=== PATIENT | female | born 1935 | race Caucasian/White ===

== ENCOUNTER 2018-04-10 21:42 | Emergency (ER) | payer MEDICARE, OTHER ==
[~2018-04-10] VITALS: Ht 162.6 cm; Wt 77.6 kg
[~2018-04-10 21:42] MED LIST: CALC500T63 PO; CHOL20004 PO; FAMO-129 PO; MAGN400C PO; POTA99TA14 PO; PRAV20TA PO
[2018-04-10 21:54] VITALS: BP_SYST 103
[2018-04-10] MEDS ORDERED: DIPH-TET-PERTUS Vaccine 0.5 ML VIAL (ADACEL) I.M. ONE (22:30)
[2018-04-11] MEDS ORDERED: IBUPROFEN 800 MG TABLET PO ONE (01:00)
[2018-04-11] MEDS ORDERED: NACL 0.9% 1,000 ML IV ONE ×2 (01:26→01:30)
[2018-04-11] MEDS ORDERED: IPRATROPIUM/ALBUTEROL SULFATE 3 ML AMPUL.NEB (DUONEB) INH ONE (01:30)
[2018-04-11] MEDS ORDERED: KETOROLAC TROMETHAMINE 60 MG/2 ML VIAL IM ONE (01:30)
[2018-04-11] MEDS ORDERED: LIDOCAINE JECT 2% PF 100 MG/5ML SYRINGE IVP ONE (01:30)
[2018-04-11] MEDS ORDERED: KETOROLAC TROMETHAMINE 30 MG VIAL IVP ONE (01:45)
[2018-04-11] MEDS ORDERED: LORazepam 2 MG/ML VIAL (FOR ER USE) IVP ONE ×3 (01:45→06:00)
[2018-04-11 01:51] LABS: BASOPHILS # (AUTO) 0.1 K/uL (0.0-0.2); BASOPHILS % (AUTO) 0.9 % (0.0-2.0); EOSINOPHILS % (AUTO) 0.4 % (0.0-4.0); HEMATOCRIT 33.3 % (36-48); HEMOGLOBIN 10.8 g/dL (12.0-16.0); LYMPHOCYTES # (AUTO) 0.7 K/uL (1.0-5.5); LYMPHOCYTES % (AUTO) 12.4 % (20.5-51.5); MEAN CORPUSCULAR HEMOGLOBIN 33 pg (27-31); MEAN CORPUSCULAR HGB CONC 33 % (32-36); MEAN CORPUSCULAR VOLUME 100 fL (79.0-98.0); MONOCYTES # (AUTO) 0.7 K/uL (0.0-1.0); MONOCYTES % (AUTO) 12.5 % (1.7-9.3); NEUTROPHILS # (AUTO) 4.2 K/uL (1.8-7.7); NEUTROPHILS % (AUTO) 73.8 % (40.0-70.0); PLATELET COUNT (AUTO) 190 K/uL (130-430); RED BLOOD CELL COUNT(AUTO) 3.33 MIL/uL (4.2-6.2); WHITE BLOOD COUNT (AUTO) 5.7 K/uL (4.8-10.8)
[2018-04-11 01:57] LABS: ANION GAP 8 (5-15); CALCIUM 8.8 mg/dL (8.4-11.0); CHLORIDE 99 mmol/L (98-107); CREATININE 1.95 mg/dL (0.55-1.30); GLUCOSE 121 mg/dL (70-99); POTASSIUM 3.2 mmol/L (3.5-5.1); SODIUM SERUM 141 mmol/L (136-145); UREA NITROGEN, BLOOD 67 mg/dL (8-21)
[2018-04-11] MEDS ORDERED: METO2.5T6 PO (01:58)
[2018-04-11] MEDS ORDERED: AMIODARONE HCL 900 MG in D5W 482 ML IV ONE (02:00)
[2018-04-11] MEDS ORDERED: IRON150C18 PO (02:00)
[2018-04-11] MEDS ORDERED: EPOE40003 SUBCUT (02:00)
[2018-04-11] MEDS ORDERED: ATROPINE SULFATE 0.5 MG/5 ML SYRINGE IVP ONE ×2 (02:00→05:30)
[2018-04-11] MEDS ORDERED: AMIODARONE HCL 150 MG in D5W 97 ML IV ONE (02:00)
[2018-04-11] MEDS ORDERED: LEVE100S PO (02:02)
[2018-04-11] MEDS ORDERED: HYDR-4274 PO (02:04)
[2018-04-11 02:08] LABS: ALANINE AMINOTRANSFERASE 18 U/L (12-78); ALBUMIN 3.4 g/dL (3.4-4.8); ASPARTATE AMINOTRANSFERASE 30 U/L (10-37)
[2018-04-11] MEDS ORDERED: AMIODARONE HCL 150 MG/3ML VIAL ONE (02:13)
[2018-04-11] MEDS ORDERED: AMIODARONE HCL 900 MG/18 ML VIAL IV ONE (02:15)
[2018-04-11] MEDS ORDERED: ATROPINE SULFATE 1 MG/10 ML SYRINGE IVP ONE (02:18)
[2018-04-11] MEDS ORDERED: DOCU-144 PO (02:25)
[2018-04-11] MEDS ORDERED: ALBMDI INH (02:26)
[2018-04-11] MEDS ORDERED: FURO80TA86 PO (02:27)
[2018-04-11] MEDS ORDERED: OMEP20CA10 PO (02:27)
[2018-04-11] MEDS ORDERED: FAMO20TA8 PO (02:30)
[2018-04-11] MEDS ORDERED: ASPIRIN 81 MG TAB.CHEW PO ONE (02:30)
[2018-04-11] MEDS ORDERED: POTA10TA15 PO (02:31)
[2018-04-11] MEDS ORDERED: LORA10TA7 PO (02:31)
[2018-04-11] MEDS ORDERED: MAGN100T6 PO (02:32)
[2018-04-11] MEDS ORDERED: ASPI-1153 PO (02:32)
[2018-04-11] MEDS ORDERED: PHOS118S24 PO (02:33)
[2018-04-11] MEDS ORDERED: DOXY-160 PO (02:36)
[2018-04-11] MEDS ORDERED: ACET-73 PO (02:45)
[2018-04-11] MEDS ORDERED: LIDO5CRE18 TP (02:46)
[2018-04-11] MEDS ORDERED: TRIA15CR3 TP (02:48)
[2018-04-11] MEDS ORDERED: IBAN150T PO (02:49)
[2018-04-11] MEDS ORDERED: OSCD500 GT (02:50)
[2018-04-11] MEDS ORDERED: MULT-1117 PO (02:51)
[2018-04-11] MEDS ORDERED: ASCO500T20 PO (02:52)
[2018-04-11] MEDS ORDERED: PRAV40TA PO (02:53)
[2018-04-11] MEDS ORDERED: LEVO75TA7 PO (02:53)
[2018-04-11] MEDS ORDERED: CYAN100T PO (02:57)
[2018-04-11 04:47] LABS: BILIRUBIN,URINE NEGATIVE (NEGATIVE); BLOOD, URINE NEGATIVE (NEGATIVE); CLARITY/URINE CLEAR (CLEAR); COLOR,URINE YELLOW (YELLOW); GLUCOSE,URINE NEGATIVE (NEGATIVE); KETONES,URINE NEGATIVE (NEGATIVE); LEUKOCYTE ESTERASE ,URINE 1+ (NEGATIVE); NITRITE, URINE POSITIVE (NEGATIVE); PROTEIN URINE NEGATIVE (NEGATIVE); UROBILINOGEN,URINE 0.2 (0.2-1.0)
[2018-04-11 05:03] LABS: BACTERIA,URINE FEW /HPF (None Seen); RBC,URINE 0-3 /HPF (0-3)
[2018-04-11 06:45] VITALS: BP_SYST 105
== END 2018-04-11 06:45 | disposition short-term general hospital (02) ==
LOC: SED 21:42
DX: S01.01XA Laceration without foreign body of scalp, initial encounter (principal); I48.91 Unspecified atrial fibrillation; Z86.73 Personal history of transient ischemic attack (TIA), and cerebral infarction without residual deficits; Z88.1 Allergy status to other antibiotic agents; Z79.82 Long term (current) use of aspirin; Z79.899 Other long term (current) drug therapy; W19.XXXA Unspecified fall, initial encounter; Y93.89 Activity, other specified; Y92.89 Other specified places as the place of occurrence of the external cause; Y99.8 Other external cause status
CPT/HCPCS: 12001; 36415; 70450; 71045; 71100; 72125; 80053; 81000; 84484; 85025; 87086; 90471; 90715; 93005; 94640; 96365; 96366; 96372; 96375; 96376; 99285; J0282 ×2; J0461 ×2; J1885 ×2; J2060; J7030; J7060; J7620

== ENCOUNTER 2019-03-14 18:15 | Emergency (ER) | payer MEDICARE ==
[~2019-03-14] VITALS: Ht 162.6 cm; Wt 59.0 kg
[2019-03-14 18:15] VITALS: BP_SYST 134
[~2019-03-14 18:15] MED LIST changes: +ACET-73 PO; +ALBMDI INH; +ASCO500T20 PO; +ASPI-1153 PO; -CALC500T63 PO; -CHOL20004 PO; +CYAN100T3 PO; +DOCU-144 PO; +DOXY-160 PO; +EPOE40003 SUBCUT; -FAMO-129 PO; +FAMO20TA8 PO; +FURO80TA86 PO; +HYDR-4274 PO; +IBAN150T16 PO; +IRON150C18 PO; +LEVE100S PO; +LEVO75TA7 PO; +LIDO5CRE18 TP; +LORA10TA7 PO; +MAGN100T6 PO; -MAGN400C PO; +METO2.5T6 PO; +MULT-1117 PO; +OMEP20CA11 PO; +OSCD500 GT; +PHOS118S24 PO; +POTA10TA15 PO; -POTA99TA14 PO; -PRAV20TA PO; +PRAV40TA PO; +TRIA15CR3 TP
--- NOTE | 2019-03-14 18:15 | NUR ---
Triaged patient, awaiting bed assignment, EMS with PT.
--- NOTE | 2019-03-14 18:23 | NUR ---
ER Dr. Karimi at bedside examining patient.
[2019-03-14] MEDS ORDERED: ONDANSETRON HCL 4 MG/2 ML VIAL IVP ONE (18:30)
[2019-03-14] MEDS ORDERED: NS 500 ML IV ONE (18:30)
--- NOTE | 2019-03-14 18:40 | NUR ---
Patient to ER bed 3 to gown for evaluation. Side rails up.
--- NOTE | 2019-03-14 18:45 | NUR ---
Patient BIB BLS C/O SOB. Patient A&Ox4, skin pink and warm, denies N/V/D, denies pain, placed on quality assurance monitor & pulse-ox monitor, on Room air, no distress at this time. Patient given breathing Tx enroute to ER. Patient states she was at home on 3 LPM NC with difficulty breating called 911.
[2019-03-14 19:02] LABS: BASOPHILS # (AUTO) 0.2 K/uL (0.0-0.2); BASOPHILS % (AUTO) 1.1 % (0.0-2.0); EOSINOPHILS % (AUTO) 0.1 % (0.0-4.0); HEMATOCRIT 32.4 % (36-48); HEMOGLOBIN 10.9 g/dL (12.0-16.0); LYMPHOCYTES # (AUTO) 0.7 K/uL (1.0-5.5); LYMPHOCYTES % (AUTO) 3.9 % (20.5-51.5); MEAN CORPUSCULAR HEMOGLOBIN 35 pg (27-31); MEAN CORPUSCULAR HGB CONC 34 % (32-36); MEAN CORPUSCULAR VOLUME 104 fL (79.0-98.0); MONOCYTES # (AUTO) 1.5 K/uL (0.0-1.0); MONOCYTES % (AUTO) 8.2 % (1.7-9.3); NEUTROPHILS # (AUTO) 16.4 K/uL (1.8-7.7); NEUTROPHILS % (AUTO) 86.7 % (40.0-70.0); PLATELET COUNT (AUTO) 210 K/uL (130-430); RED BLOOD CELL COUNT(AUTO) 3.12 MIL/uL (4.2-6.2); RED CELL DISTRIBUTION WIDTH 13.5 % (9.0-15.0); WHITE BLOOD COUNT (AUTO) 18.9 K/uL (4.8-10.8)
--- NOTE | 2019-03-14 19:15 | NUR ---
Report given to Brian SPENCE
--- NOTE | 2019-03-14 19:17 | NUR ---
ER Dr. Karimi at bedside examining patient.
--- NOTE | 2019-03-14 19:21 | NUR ---
patient went to CT in stable condition.
[2019-03-14 19:23] LABS: INR 1.1 (0.8-1.2); PROTHROMBIN TIME 11.3 SECS (9.5-12.5)
[2019-03-14 19:29] LABS: ANION GAP 7 (5-15); CALCIUM 9.4 mg/dL (8.4-11.0); CHLORIDE 101 mmol/L (98-107); CREATININE 1.19 mg/dL (0.55-1.30); GLUCOSE 112 mg/dL (70-99); POTASSIUM 3.7 mmol/L (3.5-5.1); SODIUM SERUM 140 mmol/L (136-145); UREA NITROGEN, BLOOD 73 mg/dL (8-21)
--- NOTE | 2019-03-14 19:33 | NUR ---
Patient returned from CT in stable condition.
[2019-03-14 19:42] LABS: ALANINE AMINOTRANSFERASE 15 U/L (12-78); ASPARTATE AMINOTRANSFERASE 34 U/L (10-37); LIPASE 1791 U/L (73-393); TOTAL BILIRUBIN 1.3 mg/dL (0.0-1.0)
--- NOTE | 2019-03-14 20:00 | NUR ---
Ashley Grant, friend, left phone number to contact if needed. .
[2019-03-14] MEDS ORDERED: MORPHINE 2 MG/ML INJ. SYRINGE IVP ONE ×2 (20:30→22:15)
[2019-03-14 22:24] LABS: BILIRUBIN,URINE NEGATIVE (NEGATIVE); BLOOD, URINE 1+ (NEGATIVE); CLARITY/URINE CLEAR (CLEAR); COLOR,URINE YELLOW (YELLOW); GLUCOSE,URINE NEGATIVE (NEGATIVE); KETONES,URINE NEGATIVE (NEGATIVE); LEUKOCYTE ESTERASE ,URINE 1+ (NEGATIVE); NITRITE, URINE NEGATIVE (NEGATIVE); PROTEIN URINE NEGATIVE (NEGATIVE); UROBILINOGEN,URINE 0.2 (0.2-1.0)
[2019-03-14 22:39] VITALS: BP_SYST 109
--- NOTE | 2019-03-14 22:40 | NUR ---
Patient to be transferred to [facility]. Is being transferred due to higher level of care. Receiving facility has accepting physician and available space. ER physician has signed transfer form. Patient or responsible green party has agreed to transfer and signed form. Patient belongings inventoried and will be sent with patient. Copy of nursing notes, lab reports, EKG, Physicians Orders and X-rays to be sent with patient. Report called to Savi at receiving facility. Receiving physician is Kalpana. [facility] has been called for transfer.
[2019-03-14 22:49] LABS: BACTERIA,URINE FEW /HPF (None Seen)
--- NOTE | 2019-03-15 11:13 | NUR ---
RECEIVED DISCREPTANCY FROM RADIOLOGY, DISCUSSED CASE WITH DR LOBO. PT WAS ADMITTED TO [facility], WILL FAX TO EXACT LOCATION. REPORT GIVEN TO MELVIN FARMER
== END 2019-03-14 22:40 | disposition short-term general hospital (02) ==
LOC: SED 18:15
DX: K85.90 Acute pancreatitis without necrosis or infection, unspecified (principal); R11.10 Vomiting, unspecified; I48.91 Unspecified atrial fibrillation; J18.9 Pneumonia, unspecified organism; L89.312 Pressure ulcer of right buttock, stage 2; E07.9 Disorder of thyroid, unspecified; Z88.0 Allergy status to penicillin; Z88.1 Allergy status to other antibiotic agents; Z79.899 Other long term (current) drug therapy; Z79.82 Long term (current) use of aspirin
CPT/HCPCS: 36415; 71045; 74176; 80053; 81000; 83605; 83690; 84484; 85025; 85610; 85730; 86710; 87040; 87086; 96361; 96365; 96366; 96375; 96376; 99285; J1956; J2270; J2405

== ENCOUNTER 2019-11-05 12:24 | Emergency (ER) | payer MEDICARE, SELFPAY ==
[~2019-11-05] VITALS: Ht 162.6 cm; Wt 63.5 kg
[2019-11-05 12:25] VITALS: BP_SYST 131
[2019-11-05 13:44] LABS: BILIRUBIN,URINE NEGATIVE (NEGATIVE); BLOOD, URINE 2+ (NEGATIVE); CLARITY/URINE SL CLOUDY (CLEAR); COLOR,URINE YELLOW (YELLOW); GLUCOSE,URINE NEGATIVE (NEGATIVE); KETONES,URINE NEGATIVE (NEGATIVE); LEUKOCYTE ESTERASE ,URINE 3+ (NEGATIVE); NITRITE, URINE NEGATIVE (NEGATIVE); PH,URINE 8.5 (5.0-8.0); PROTEIN URINE NEGATIVE (NEGATIVE); UROBILINOGEN,URINE 0.2 (0.2-1.0)
[2019-11-05 13:49] LABS: BASOPHILS # (AUTO) 0.1 K/uL (0.0-0.2); BASOPHILS % (AUTO) 1.2 % (0.0-2.0); EOSINOPHILS % (AUTO) 0.7 % (0.0-4.0); HEMOGLOBIN 10.5 g/dL (12.0-16.0); LYMPHOCYTES # (AUTO) 0.3 K/uL (1.0-5.5); LYMPHOCYTES % (AUTO) 4.5 % (20.5-51.5); MEAN CORPUSCULAR HEMOGLOBIN 33 pg (27-31); MEAN CORPUSCULAR HGB CONC 34 % (32-36); MEAN CORPUSCULAR VOLUME 98 fL (79.0-98.0); MONOCYTES # (AUTO) 0.6 K/uL (0.0-1.0); NEUTROPHILS # (AUTO) 5.2 K/uL (1.8-7.7); NEUTROPHILS % (AUTO) 83.6 % (40.0-70.0); PLATELET COUNT (AUTO) 193 K/uL (130-430); RED BLOOD CELL COUNT(AUTO) 3.17 MIL/uL (4.2-6.2); RED CELL DISTRIBUTION WIDTH 15.8 % (9.0-15.0); WHITE BLOOD COUNT (AUTO) 6.2 K/uL (4.8-10.8)
[2019-11-05 14:05] LABS: ANION GAP 5 (5-15); CALCIUM 9.6 mg/dL (8.4-11.0); CHLORIDE 89 mmol/L (98-107); CREATININE 1.23 mg/dL (0.55-1.30); GLUCOSE 105 mg/dL (70-99); POTASSIUM 3.4 mmol/L (3.5-5.1); SODIUM SERUM 128 mmol/L (136-145); UREA NITROGEN, BLOOD 84 mg/dL (8-21)
[2019-11-05 14:06] LABS: BACTERIA,URINE MODERATE /HPF (None Seen); TRIPLE PHOSPHATE CRYSTAL,UR 0-10 /HPF (None Seen); URINE AMORPHOUS PHOSPHATES FEW /HPF (None Seen)
[2019-11-05 14:09] LABS: ALANINE AMINOTRANSFERASE 18 U/L (12-78); ASPARTATE AMINOTRANSFERASE 26 U/L (10-37); C-REACTIVE PROTEIN QUANT 5.8 mg/dL (0-0.5); LACTATE DEHYDROGENASE 207 U/L (81-234); TOTAL BILIRUBIN 0.8 mg/dL (0.0-1.0)
[2019-11-05 14:13] LABS: INR 1.2 (0.8-1.2); PROTHROMBIN TIME 11.9 SECS (9.5-12.5)
[2019-11-05] MEDS ORDERED: KETAMINE 30 MG/3 ML SYRINGE 15 MG in NS 100 ML IV ONE (14:15)
[2019-11-05] MEDS ORDERED: MORPHINE 2 MG/ML INJ. SYRINGE IVP ONE (14:15)
[2019-11-05] MEDS ORDERED: KETAMINE 30 MG/3 ML SYRINGE ONE (14:31)
[2019-11-05] MEDS ORDERED: LEVOFLOXACIN 500 MG/D5W 100 ML IV ONE (15:00)
[2019-11-05] MEDS ORDERED: ATROPINE SULFATE 1 MG/10 ML SYRINGE IVP ONE (15:30)
[2019-11-05] MEDS ORDERED: CYCLOBENZAPRINE HCL 10 MG TABLET (FLEXERIL) PO ONE (16:45)
[2019-11-05] MEDS ORDERED: IOHEXOL 350 mgI/mL, 150 ML INFUS..BTL IV ONE (17:57)
[2019-11-05] MEDS ORDERED: FUROSEMIDE 20 MG/2 ML VIAL IVP ONE (18:45)
[2019-11-05] MEDS ORDERED: NS 250 ML IV ONE (19:15)
[2019-11-05 19:56] VITALS: BP_SYST 114
== END 2019-11-05 19:56 | disposition short-term general hospital (02) ==
LOC: SED 12:24
DX: E87.1 Hypo-osmolality and hyponatremia (principal); I50.9 Heart failure, unspecified; N28.9 Disorder of kidney and ureter, unspecified; N39.0 Urinary tract infection, site not specified; I48.91 Unspecified atrial fibrillation; E07.9 Disorder of thyroid, unspecified; Z86.79 Personal history of other diseases of the circulatory system; Z79.899 Other long term (current) drug therapy; Z79.82 Long term (current) use of aspirin; Z88.0 Allergy status to penicillin; Z88.1 Allergy status to other antibiotic agents
CPT/HCPCS: 36415; 71045; 71275; 80053; 81000; 82550; 82728; 83605; 83615; 83880; 84484; 85025; 85379; 85384; 85610; 85730; 86140; 86886; 86900; 86901; 87040; 87086; 87426; 93005; 96365; 96375; 99291; J0461; J1956; J2270; Q9967; 87186-TC